=== PATIENT | male | born 1990 | race Caucasian/White ===

== ENCOUNTER 2018-08-22 01:40 | Outpatient (CLI) | payer OTHER, SELFPAY ==
[2018-08-22 08:38] LABS: HCT 45.6 % (40.0-50.0); HGB 16.2 g/dL (13.5-17.5); Mean Corp. HGB Concentration 35.5 g/dL (32.0-36.0); Mean Corpuscular Hemoglobin 31.8 pg (27.0-33.0); Mean Corpuscular Volume 89.6 fL (80-95); Mean Platelet Volume 9.8 fL (8.0-11.0); Platelet Count 204 x1000/uL (130-400); RBC 5.09 m/cumm (4.50-6.00); RBC Distribution Width 12.9 % (11.8-14.1); White Blood Cell Count 6.02 k/cumm (4.4-10.8)
[2018-08-22 09:20] LABS: ALT 30 U/L (12-78); AST 27 U/L (15-37); Albumin 4.4 g/dL (3.4-5.0); Alkaline Phosphatase 71 U/L (46-116); Bilirubin, Total 0.9 mg/dL (0.2-1.0); FREE T4 1.16 ng/dL (0.76-1.46); TSH 3.15 uIU/mL (0.358-3.74); Total Protein 7.9 g/dL (6.4-8.2)
[2018-08-23 10:18] LABS: PSA, Screening 0.7 ng/ml (0-2.5)
[2018-08-25 13:24] LABS: Testosterone, Total 136 ng/dL (240-950)
== END 2018-08-22 02:00 ==
PROVIDERS: Visit Provider Internal Medicine Endocrinology, Diabetes & Metabolism
DX: E23.0 Hypopituitarism (principal)
CPT/HCPCS: 36415; 80076; 84153; 84403; 85027; 84439; 84443

== ENCOUNTER 2018-12-14 07:01 | Outpatient (CLI) | payer OTHER, SELFPAY ==
[2018-12-14 08:15] LABS: ALT 27 U/L (12-78); AST 16 U/L (15-37); Albumin 4.6 g/dL (3.4-5.0); Alkaline Phosphatase 69 U/L (46-116); Bilirubin, Direct 0.29 mg/dL (0.00-0.20); Bilirubin, Total 1.5 mg/dL (0.2-1.0); Total Protein 7.7 g/dL (6.4-8.2)
[2018-12-17 11:14] LABS: Testosterone, Free 31.1 ng/dL (4.85-19.0); Testosterone, Total 865 ng/dL (240-950)
== END 2018-12-14 07:21 ==
PROVIDERS: PCP Nurse Practitioner Family; Visit Provider Internal Medicine Endocrinology, Diabetes & Metabolism
DX: E23.0 Hypopituitarism (principal)
CPT/HCPCS: 36415; 80076; 84402; 84403

== ENCOUNTER 2019-02-01 07:13 | Outpatient (CLI) | payer OTHER, SELFPAY ==
[2019-02-01 08:19] LABS: HCT 46.5 % (40.0-50.0); HGB 16.4 g/dL (13.5-17.5)
[2019-02-02 09:15] LABS: PSA, Screening 0.7 ng/ml (0-2.5)
[2019-02-03 16:46] LABS: Testosterone, Free 26.8 ng/dL (4.85-19.0); Testosterone, Total 724 ng/dL (240-950)
== END 2019-02-01 07:33 ==
PROVIDERS: PCP Nurse Practitioner Family; Visit Provider Internal Medicine Endocrinology, Diabetes & Metabolism
DX: E23.0 Hypopituitarism (principal)
CPT/HCPCS: 36415; 84153; 84402; 84403; 85014; 85018

== ENCOUNTER 2021-09-10 09:17 | Outpatient (REF) | payer OTHER, SELFPAY ==
[2021-09-10 14:34] LABS: Abs Immature Grans 0.02 10^3/uL (0.0-0.06); Absolute Basophil Count 0.04 10^3/uL (0.0-0.2); Absolute Eosinophil Count 0.18 10^3/uL (0.0-0.7); Absolute Lymphocyte Count 2.03 10^3/uL (1.2-3.4); Absolute Neutrophil Count 3.39 10^3/uL (1.2-6.7); Basophils % 0.7; HCT 47.8 % (40.0-50.0); HGB 16.3 g/dL (13.5-17.5); Immature Grans % 0.3; Lymphocytes % 33.5; MCH 30.6 pg (27.0-33.0); MCHC 34.1 % (32.0-36.0); MCV 89.7 fL (80-95); MPV 10.2 fL (8.0-11.0); Monocytes % 6.6; Neutrophils % 55.9; Nucleated RBC 0 %; Platelet Count 207 10^3/uL (130-400); RBC 5.33 10^6/uL (4.36-5.78); RDW 12.5 % (11.8-14.1); RDW-SD 40.9 fL; WBC 6.06 10^3/uL (4.4-10.8)
[2021-09-10 15:11] LABS: ALT 33 U/L (16-63); AST 20 U/L (15-37); Albumin 4.5 g/dL (3.4-5.0); Alkaline Phosphatase 76 U/L (46-116); Anion Gap 8.1 mmol/L (3-11); BUN 12 mg/dL (7-18); Bilirubin, Total 0.8 mg/dL (0.2-1.0); CO2 25.9 mmol/L (21.0-32.0); Calcium 9.3 mg/dL (8.5-10.1); Calculated LDL 100 mg/dL (<100); Chloride 105 mmol/L (98-107); Cholesterol 165 mg/dL (<200); Glucose 86 mg/dL (74-106); HDL Cholesterol 49 mg/dL (40-60); Potassium 4.1 mmol/L (3.5-5.1); Sodium 139 mmol/L (136-145); Total Protein 7.7 g/dL (6.4-8.2); Triglyceride 84 mg/dL (<150)
[2021-09-10 22:54] LABS: PSA, Screening 0.7 ng/mL (0.0-2.5)
[2021-09-18 14:40] LABS: Testosterone, Free 65.3 ng/dL (4.85-19.0); Testosterone, Total 1390 ng/dL (240-950)
== END 2021-09-10 09:18 | disposition home or self-care (01) ==
LOC: NCHCN 09:17
PROVIDERS: PCP Nurse Practitioner Family; Visit Provider Nurse Practitioner Family
DX: E23.0 Hypopituitarism (principal); F90.0 Attention-deficit hyperactivity disorder, predominantly inattentive type; Z12.5 Encounter for screening for malignant neoplasm of prostate
CPT/HCPCS: 80053; 80061; 84153; 84402; 84403; 85025

== ENCOUNTER 2022-01-07 15:15 | Outpatient (REF) | payer OTHER, SELFPAY ==
[2022-01-07 15:18] LABS: HCT 47.9 % (40.0-50.0); HGB 17.1 g/dL (13.5-17.5); MCH 32.7 pg (27.0-33.0); MCHC 35.7 % (32.0-36.0); MCV 92 fL (80-95); MPV 9.9 fL (8.0-11.0); Platelet Count 186 10^3/uL (130-400); RBC 5.23 10^6/uL (4.36-5.78); RDW 12.4 % (11.8-14.1); RDW-SD 41.9 fL; WBC 5.18 10^3/uL (4.4-10.8)
[2022-01-24 16:12] LABS: Testosterone, Free 43.4 ng/dL (4.85-19.0); Testosterone, Total 1010 ng/dL (240-950)
== END 2022-01-07 15:16 | disposition home or self-care (01) ==
LOC: NCHCN 15:15
PROVIDERS: PCP Nurse Practitioner Family; Visit Provider Nurse Practitioner Family
DX: Z51.81 Encounter for therapeutic drug level monitoring (principal)
CPT/HCPCS: 84402; 84403; 85027

== ENCOUNTER 2023-02-17 21:30 | Outpatient (REF) | payer OTHER, SELFPAY ==
[2023-02-17 22:08] LABS: Abs Immature Grans 0.06 10^3/uL (0.0-0.06); Absolute Basophil Count 0.04 10^3/uL (0.0-0.2); Absolute Eosinophil Count 0.14 10^3/uL (0.0-0.7); Absolute Lymphocyte Count 1.49 10^3/uL (1.2-3.4); Absolute Monocyte Count 0.53 10^3/uL (0.1-0.8); Absolute Neutrophil Count 4.01 10^3/uL (1.2-6.7); Basophils % 0.6; Eosinophils % 2.2; HCT 45.1 % (40.0-50.0); HGB 15.6 g/dL (13.5-17.5); Lymphocytes % 23.8; MCH 31.3 pg (27.0-33.0); MCHC 34.6 % (32.0-36.0); MCV 90 fL (80-95); MPV 9.8 fL (8.0-11.0); Monocytes % 8.5; Neutrophils % 63.9; Platelet Count 239 10^3/uL (130-400); RBC 4.99 10^6/uL (4.36-5.78); RDW 12.2 % (11.8-14.1); WBC 6.27 10^3/uL (4.4-10.8)
[2023-02-17 22:22] LABS: ALT 97 U/L (16-63); AST 39 U/L (15-37); Albumin 4.4 g/dL (3.4-5.0); Alkaline Phosphatase 103 U/L (46-116); Anion Gap 8.8 mmol/L (3-11); BUN 16 mg/dL (7-18); Bilirubin, Total 0.5 mg/dL (0.2-1.0); CO2 28.2 mmol/L (21.0-32.0); Calcium 9.5 mg/dL (8.5-10.1); Calculated LDL 119 mg/dL (<100); Chloride 101 mmol/L (98-107); Cholesterol 210 mg/dL (<200); Estimated GFR 101.28 (mL/min/1.73m2); Glucose 109 mg/dL (74-106); HDL Cholesterol 61 mg/dL (40-60); Potassium 3.9 mmol/L (3.5-5.1); Sodium 138 mmol/L (136-145); Total Protein 7.9 g/dL (6.4-8.2); Triglyceride 154 mg/dL (<150)
[2023-02-23 12:21] LABS: Testosterone, Free 6.37 ng/dL (4.85-19.0); Testosterone, Total 190 ng/dL (240-950)
== END 2023-02-17 21:31 | disposition home or self-care (01) ==
LOC: NCHCN 21:30
PROVIDERS: Visit Provider Nurse Practitioner Family
DX: F90.0 Attention-deficit hyperactivity disorder, predominantly inattentive type (principal); E23.0 Hypopituitarism; Z79.899 Other long term (current) drug therapy; Z51.81 Encounter for therapeutic drug level monitoring; R79.89 Other specified abnormal findings of blood chemistry; E29.8 Other testicular dysfunction
CPT/HCPCS: 80053; 80061; 84402; 84403; 85025

== ENCOUNTER 2024-05-03 14:52 | Outpatient (REF) | payer OTHER, SELFPAY ==
--- OUTSIDE RECORDS SUMMARY | 2024-05-03 14:56 | XMS_ITS | Encounter Summary ---
Author Organization [facility] Address [address] [place] [address] Care Team Providers Care Chief Of Surgery Name Role Phone Unknown, Provider Primary Care Provider Unava ilable Reason for Visit * Reason Onset Date Comments Medications Refill 03/12/2020 Encounter Details Date Type Department Care Team (Late st Contact Info) Description 03/12/2020 Refill [facility] Endocrinology [address] [place] [id number] Deborah Gonzales RN Medications Refill Social History Tobacco Use Types Packs/Day Years Used Date Smoking Tobacco: Never Assessed Interpersonal Safety Answer Date Record ed Physically Hurt Never 01/29/2020 Verbally Threaten Not on file 01/29/2020 Sex and Gender Information Value Date Recorded Sex Assigned at Male 09/09/2022 14:50 EDT Gender Identity Male 11/27/2020 15:43 EDT Sexual Orientation Straight 09/09/2022 14 :50 EDT documented as of this encounter Miscellaneous Notes * Telephone Encounter - Deborah Gonzales RN - 03/12/2020 1043 EDT Baylis called to [facility] x 1 yr. documented in this encounter Plan of Treatment Not on file documented as of this encounter Visit Diagnoses Not on filedocumented in this encounter Historical Medications * This list may reflect changes made after this encounter. Medication Sig Dispensed Refills Start Date End Date Needle, Disp, 18 G 18 gauge x 1 needle 1 Each by misc (non-drug; combo route) route. To withdraw testosterone every 2 weeks added in this encounter Care Teams Chief Of Surgery Relationship Specialty Start Date End Date Unknown, Provider, PCP - General 08/15/18 documented as of this encounter
--- OUTSIDE RECORDS SUMMARY | 2024-05-03 14:56 | XMS_ITS | Encounter Summary ---
Author Organization [facility] Address [address] [place] [address] Care Team Providers Care Tool Sharpener Name Role Phone Unknown, Provider Primary Care Provider Unava ilable Reason for Visit * Reason Onset Date Comments Medications Refill 03/11/2020 Encounter Details Date Type Department Care Team (Late st Contact Info) Description 03/11/2020 Refill [facility] Endocrinology [address] [place] [phone] Deborah Gonzales RN Medications Refill Social History [...] :50 EDT documented as of this encounter Plan of Treatment Not on file documented as of this encounter Visit Diagnoses Diagnosis Hypogonadism in male- Primary documented in this encounter Orders Equipment Count Last Ordered Date First Orde red Date GENERIC DME ORDER 1 03/11/2020 documented in this encounter Care Teams Tool Sharpener Relationship Specialty Start Date End Date Unknown, Provider, PCP - General 08/15/18 documented as of this encounter
--- OUTSIDE RECORDS SUMMARY | 2024-05-03 14:56 | XMS_ITS | Encounter Summary ---
Author Organization [facility] Address [address] [place] [address] Care Team Providers Care Gas Systems Worker Name Role Phone Unknown, Provider MD Primary Care Provider Unava ilable Reason for Visit * Reason Onset Date Comments Pre-visit Orders 02/15/2020 Encounter Details Date Type Department Care Team (Late st Contact Info) Description 02/15/2020 Telephone [facility] [place]ology [address] [place] [address] Kristi Mcwilliams MD [address] [facility] [address] [place] [address] Pre-visit Orders Social History Tobacco Use Types Packs/Day Years [...] Telephone Encounter - Deborah Gonzales RN - 02/15/2020 0910 EDT theyre ordered in ecw * Telephone Encounter - Ayaka Galo - 02/15/2020 0858 EDT He was suppose to come today but did not have labs done so changed his visit to a zoom visit in April . He wants to do the labs at the clinic near his home . I did not see orders. Please put in lab orders and I will print and sent to his home. 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
--- OUTSIDE RECORDS SUMMARY | 2024-05-03 14:56 | XMS_ITS | Referral Summary ---
Author Organization [facility] Address [address] [place] [address] Care Team Providers Care County Engineer Name Role Phone Unknown, Provider Primary Care Provider Unava ilable Allergies No known active allergies Medications Medication Sig Dispensed Refills Start Date End Date Status BD LUER-HATTIE SYRINGE 3 mL 22 x 1 1/2 syringe 1 Each. 05/15/2019 Active cholecalciferol, Vitamin D3, 125 mcg (5,000 unit) capsule 1 cap(s) orally once a day Active Benzocaine (HURRICAINE ONE) 20 % spray,non-aerosol 1 spray(s) applied topically with testosteorne every 2 weeks every 2 weeks Active Needle, Disp, 18 G 18 gauge x 1 needle 1 Each by misc (non-drug; combo route) route. To withdraw testosterone every 2 weeks Active testosterone cypionate (DEPO-TESTOSTERONE) 200 mg/mL injection Inject 1 mL into the muscle every 14 days. Daily Max: 200 mg 4 mL 2 08/27/2020 Active Active Problems Problem Noted Date Diagnosed Date Hypogonadotropic hypogonadism ([facility]) 05/21/20 20 Social History Tobacco Use Types Packs/Day Years Used Date Smoking Tobacco: Never Assessed Interpersonal Safety Answer Date Record ed Physically Hurt Never 01/29/2020 Verbally Threaten Not on file 01/29/2020 Sex and Gender Information Value Date Recorded Sex Assigned at Male 09/09/2022 14:50 EDT Gender Identity Male 11/27/2020 15:43 EDT Sexual Orientation Straight 09/09/2022 14 :50 EDT Plan of Treatment Not on file Care Teams County Engineer Relationship Specialty Start Date End Date Unknown, Provider, PCP - General 08/15/18
--- OUTSIDE RECORDS SUMMARY | 2024-05-03 14:56 | XMS_ITS | Encounter Summary ---
Author Organization [facility] Address [address] [place] [address] Care Team Providers Care Ripsawyer Name Role Phone Unknown, Provider Primary Care Provider Unava ilable Encounter Details Date Type Department Care Team (Late st Contact Info) Description 09/10/2021 Lab Requisition [facility] Pathology & Laboratory Medicine - [address] [address] Outr Resulting Lab, Provider Social History Tobacco Use Types Packs/Day Years [...] on file documented as of this encounter Procedures Procedure Name Priority Date/Time Associated Diagnosis Comments PSA TOTAL, DIAGNOSTIC Routine 09/10/2021 8:15 EDT documented in this encounter Results * PSA TOTAL, DIAGNOSTIC (09/10/2021 8:15 EDT) PSA 0.7 0.0 - 2.5 ng/mL 09/10/2021 22:49 EDT [facility] Blood VENOUS BLOOD / Unknown 09/10/2021 8:15 EDT 09/10/2021 21:26 EDT Narrative [facility] - 09/10/2021 22:49 EDT NOTE: Serum PSA concentration should not be interpreted as absolute evidence for the presence or absence of malignant disease. Assayed on Siemens [employer] XPT using chemiluminescent technology.??Values obtained by using different assay methods cannot be used interchangeably. Provider Outr Resulting Lab CHEMISTRY & BLOOD GAS ORDERABLES [facility] [address] [place] [address] documented in this encounter Visit Diagnoses Not on filedocumented in this encounter Care Teams Ripsawyer Relationship Specialty Start Date End Date Unknown, Provider, PCP - General 08/15/18 documented as of this encounter
--- OUTSIDE RECORDS SUMMARY | 2024-05-03 14:56 | XMS_ITS | Clinical Summary ---
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[facility]) 05/21/20 20 Social History Tobacco Use Types Packs/Day Years Used Date Smoking Tobacco: Never Assessed Interpersonal Safety Answer Date Record ed Physically Hurt Never 01/29/2020 Verbally Threaten Not on file 01/29/2020 Sex and Gender Information Value Date Recorded Sex Assigned at Male 09/09/2022 14:50 EDT Gender Identity Male 11/27/2020 15:43 EDT Sexual Orientation Straight 09/09/2022 14 :50 EDT Obstetrics History Plan of Treatment Health Maintenance Due Date Last Done Comments Hepatitis C Screen 1988 Hepatitis B Vaccine (1 of 3 - 19+ 3-dose series) 11/24 COVID-19 Vaccine (2022-24 season) 2023 Care Teams Stock Tracer Relationship Specialty Start Date End Date Unknown, Provider, PCP - General 08/15/18
--- OUTSIDE RECORDS SUMMARY | 2024-05-03 14:56 | XMS_ITS | Encounter Summary ---
Author Organization [facility] Address [address] [place] [address] Care Team Providers Care Dough Sheeter Name Role Phone Unknown, Provider MD Primary Care Provider Unava ilable Reason for Visit * Reason Comments Follow-up Hypogonadism Encounter Details Date Type Department Care Team (Latest Contact Info) Description 05/21/2020 8:00 EST Telemedicine [facility] Endocrinology [address] [place] [phone] Kristi Mcwilliams MD [address] [facility] [address] [place] [address] Hypogonadotropic hypogonadism (HCC-CMS) (Primary Dx) Social History Tobacco Use Types Packs/Day Years Used Date Smoking Tobacco: Never Assessed Interpersonal Safety Answer Date Record ed Physically Hurt Never 01/29/2020 Verbally Threaten Not on file 01/29/2020 Sex and Gender Information Value Date Recorded Sex Assigned at Male 09/09/2022 14:50 EDT Gender Identity Male 11/27/2020 15:43 EDT Sexual Orientation Straight 09/09/2022 14 :50 EDT documented as of this encounter Progress Notes * Deborah Gonzales RN - 05/21/2020 0800 EST Letter sent * Kristi De La Cruz MD - 05/21/2020 0800 EST [facility] Video Visit Today's visit was provided through telemedicine video conferencing: zoom The location of the patient: Workplace The location of the provider: Office Verbal consent: The concept of ???Telemedicine?? has been described to the patient.Patient has been informed of the anticipated benefits and possible risks. Patient understands the information provided regarding telemedicine, has had the opportunity to ask questions about this information, and all questions have been answered to patient???s satisfaction. Patient consents for the use of telemedicine in his/her medical care and authorizes the transmission of any relevant medical information to providers and their staff involved in patient???s medical or mental health care. 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 He reports he has been doing well, no changes in health. He did change his pharmacy to [facility]. Reports in the morning he takes time to urinate but denies any obstructive symptoms. No recent labs. Denies any breast tenderness. Voice is good, no sexually active how ever is masturbating w .o problems I have reviewed patient's tobacco history: has no history on file for tobacco. I have reviewed current problem list and current medications. ROS: Review of Systems Respiratory: Negative for shortness of breath. Cardiovascular: Negative for chest pain and palpitations. Gastrointestinal: Negative for heartburn and nausea. Genitourinary: Negative for frequency and urgency. Neurological: Negative for headaches. Objective: Examination: Home Vitals: There were no vitals taken for this visit. Pertinent exam findings: appears well, neck supple, no JVD, non-labored breathing, no wheeze, no rash on visible skin and mood and affect appropriate Data reviewed with patient: most recent labs reviewed Assessment & Plan: 1. 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 Clinically appears eugonadal. Advise to continue treatment. Needs to do labs, I said to Darrell that he needs at least once a year labs in order for me to renew prescriptions. Pharmacy updated in the computer. Will see him back in 6 months. 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
--- OUTSIDE RECORDS SUMMARY | 2024-05-03 14:56 | XMS_ITS | Encounter Summary ---
Author Organization [facility] Address [address] [place] [address] Care Team Providers Care Station Helper Name Role Phone Unknown, Provider Primary Care Provider Unava ilable Reason for Visit * Reason Onset Date Comments Medications Refill 08/27/2020 Testosterone Encounter Details Date Type Department Care Team (Late st Contact Info) Description 08/27/2020 Telephone [facility] Endocrinology [address] [place] [address] Deidre Burnette, SOLOMON [address] [place] [address] Medications Refill (Testosterone) Social History Tobacco Use Types Packs/Day Years Used Date Smoking Tobacco: Never Assessed Interpersonal Safety Answer Date Record ed Physically Hurt Never 01/29/2020 Verbally Threaten Not on file 01/29/2020 Sex and Gender Information Value Date Recorded Sex Assigned at Male 09/09/2022 14:50 EDT Gender Identity Male 11/27/2020 15:43 EDT Sexual Orientation Straight 09/09/2022 14 :50 EDT documented as of this encounter Ordered Prescriptions Prescription Sig Dispensed Refills Start Date End Da te testosterone cypionate (DEPO-TESTOSTERONE) 200 mg/mL injection Inject 1 mL into the muscle every 14 days. Daily Max: 200 mg 4 mL 2 08/27/2020 documented in this encounter Miscellaneous Notes * Telephone Encounter - Deidre Burnette, SOLOMON - 08/27/2020 0881 EST Prescription called to pharmacy per order Dr Mcwilliams documented in this encounter Plan of Treatment Not on file documented as of this encounter Visit Diagnoses Not on filedocumented in this encounter Discontinued Medications Medication Sig Discontinue Reason Start Date End Da te testosterone cypionate (DEPO-TESTOSTERONE) 200 mg/mL injection Inject 1 mL into the muscle every 14 days. Daily Max: 200 mg Reorder 01/17/2020 08/27/2020 documented as of this encounter Care Teams Station Helper Relationship Specialty Start Date End Date Unknown, Provider, PCP - General 08/15/18 documented as of this encounter
--- OUTSIDE RECORDS SUMMARY | 2024-05-03 14:56 | XMS_ITS | Encounter Summary ---
Author Organization [facility] Address [address] [place] [address] Care Team Providers Care Manager Plan Name Role Phone Unknown, Provider MD Primary Care Provider Unava ilable Reason for Visit * Reason Onset Date Comments Medications Refill 07/18/2019 Encounter Details Date Type Department Care Team (Late st Contact Info) Description 07/18/2019 Refill [facility] Endocrinology [address] [place] [phone] Deborah Gonzales RN Medications Refill Social History Tobacco Use Types Packs/Day Years Used Date Smoking Tobacco: Never Assessed Sex and Gender Information Value Date Recorded Sex Assigned at Male 09/09/2022 14:50 EDT Gender Identity Male 11/27/2020 15:43 EDT Sexual Orientation Straight 09/09/2022 14 :50 EDT documented as of this encounter Miscellaneous Notes * Telephone Encounter - Deborah Gonzales RN - 07/18/2019 0945 EST Syringes refilled x 1 yr. documented in this encounter Plan of Treatment Not on file documented as of this encounter Visit Diagnoses Diagnosis Hypogonadotropic hypogonadism (HCC-CMS)- Primary Other anterior pituitary disorders documented in this encounter Care Teams Manager Plan Relationship Specialty Start Date End Date Unknown, Provider, PCP - General 08/15/18 documented as of this encounter
--- OUTSIDE RECORDS SUMMARY | 2024-05-03 14:56 | XMS_ITS | Encounter Summary ---
Author Organization [facility] Address [address] [place] [address] Care Team Providers Care Hospital Cleaning Specialist Name Role Phone Unknown, Provider Primary Care Provider Unava ilable Reason for Visit * Reason Comments Hypogonadism * Referral (Routine/Next Available) - Receiving Office to Obtain Authorization Specialty Diagnoses / Procedures Referred By Jasmine miller Referred To Contact Endocrinology Diagnoses Kallman syndrome ([facility]) Ana Maria De Leon NP [address] [place] [address] [address] Referral ID Status Reason Start Date Expiration Date Visits Requested Visits Authorized [id number] Receiving Office to Obtain Authorization 1 1 Encounter Details Date Type Department Care Team (Latest Contact Info) Description 09/09/2022 16:00 EDT Telemedicine [facility] Endocrinology - [address] [address] Raul Atwood MD Hypogonadotropic hypogonadism in male ([facility]) (Primary Dx) Social History Tobacco Use Types [...] as of this encounter Progress Notes * Raul Atwood MD - 09/09/2022 1600 EDT Endocrinology New Patient Visit Date of Service: 09/09/2022 Chief Complaint Patient presents with ??? Hypogonadism HPI: Darrell Larson is a 31 y.o. 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 Patient states that they were diagnosed with hypogonadotrophic hypogonadism more than 10 years ago thought to be due to Kallmann syndrome. Patient was initially started out on topical testosterone therapy but due to financial constraints patient was switched over to injectable testosterone. Patient iscurrently on testosterone cypionate 150 mg IM every 14 days (0.75 mL of testosterone cypionate 200 mg/mL concentration). Review of testosterone measures obtained by referring provider shows elevated testosterone measures. However the timing before or after dosing is uncertain. Patient admits that he is sometimes forgetful and cannot remember timing surrounding his injections. Additionally patient reports that he has been doing the injectable testosterone for so long now that is somewhat painful and wanted to know if there is any other alternatives. Patient denies any ill effects associated with his current testosterone therapy in terms of aggressive behavior, excessive acne or hypersexual is him. Patient is otherwise without complaints today. Review of Systems A 10 point review of systems was obtained, pertinent positives and negatives as listed above, all others negative. Active Problem List Patient Active Problem List Diagnosis ??? Hypogonadotropic hypogonadism (HCC) PMH PSH History reviewed. No pertinent past medical history. History reviewed. No pertinent surgical history. Social History Family history Social History Socioeconomic History ??? Marital status: Single Spouse name: Not on file ??? Number of children: Not on file ??? Years of education: Not on file ??? Highest education level: Not on file Occupational History ??? Not on file Tobacco Use ??? Smoking status: Not on file ??? Smokeless tobacco: Not on file Substance and Sexual Activity ??? Alcohol use: Not on file ??? Drug use: Not on file ??? Sexual activity: Not on file Other Topics Concern ??? Not on file Social History Narrative ??? Not on file Social Determinants of Health Financial Resource Strain: Not on file Food Insecurity: Not on file Transportation Needs: Not on file Physical Activity: Not on file Stress: Not on file Social Connections: Not on file Housing Stability: Not on file History reviewed. No pertinent family history. Current Outpatient Medications Medication ??? BD LUER-HATTIE SYRINGE 3 mL 22 x 1 1/2 syringe ??? Benzocaine (HURRICAINE ONE) 20 % spray,non-aerosol ??? cholecalciferol, Vitamin D3, 125 mcg (5,000 unit) capsule ??? Needle, Disp, 18 G 18 gauge x 1 needle ??? testosterone cypionate (DEPO-TESTOSTERONE) 200 mg/mL injection No current facility-administered medications for this visit. Allergies No Known Allergies Current Medications Current Outpatient Medications on File Prior to Visit Medication Sig Dispense Refill ??? BD LUER-HATTIE SYRINGE 3 mL 22 x 1 1/2 syringe 1 Each. ??? Benzocaine (HURRICAINE ONE) 20 % spray,non-aerosol 1 spray(s) applied topically with testosteorne every 2 weeks every 2 weeks ??? cholecalciferol, Vitamin D3, 125 mcg (5,000 unit) capsule 1 cap(s) orally once a day ??? Needle, Disp, 18 G 18 gauge x 1 needle 1 Each by misc (non-drug; combo route) route. To withdraw testosterone every 2 weeks ??? testosterone cypionate (DEPO-TESTOSTERONE) 200 mg/mL injection Inject 1 mL into the muscle every 14 days. Daily Max: 200 mg 4 mL 2 No current facility-administered medications on file prior to visit. Objective: There were no vitals taken for this visit. Wt Readings from Last 3 Encounters: No data found for Wt Physical Exam: Gen: Well-developed well-nourished in NAD Remainder physical exam deferred today as this was a telehealth visit. Previous Labs: Have reviewed testosterone measures as documented in patient's referral attachment. Assessment/Plan: 1. 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 Patient reports that he has good insurance now and would be willing to transition back to topical testosterone replacement. I agree that this would be the best way to administer the testosterone as opposed to injectable formulations. We discussed topical testosterone gel/creams and their superiority to injectable testosterone. The patient is willing to try. Given the patient's distance from our clinic will defer to the patient's primary care for institution of the following recommendations: 1. Stop IM testosterone cypionate 2. Prescribe AndroGel 1.62% and administer 2 pump actuations to the right or left deltoid daily. 3. Following 2 to 3 months of the above reassess testosterone measures 4 to 6 hours after application of topical AndroGel. Ideally should target testosterone levels between 400 to 600 ng/dL. 4. Continue to follow CBC, transaminases, and annual fasting lipid levels. Will defer to the patient's primary care for further longitudinal follow-up but would be happy to assist in making further recommendations if needed. I spent a total of 30 minutes on the date of this encounter meeting with the patient and reviewing documentation/coordinating care as described in the above note. No procedures were performed at the time of the visit. The concept of ???Telemedicine?? has been described to the patient.? Patient has been informed of the anticipated benefits and possible risks.? Patient understands the information provided regardingtelemedicine, has had the opportunity to ask questions about this information, and all questions have been answered to patient???s satisfaction. Patient consents for the use of telemedicine in his/her medical care and authorizes the transmission of any relevant medical information to providers and their staff involved in patient???s medical or mental health care. Patient understands that they maybe responsible for copays, deductible or coinsurance for this service. TELEMEDICINE VIDEO VISIT Today's visit was provided through telemedicine video conferencing: I have reviewed the appropriateness of using video technology with the patient with regards to today's visit. The location of the patient : Workplace Patient location state: Visit Location State: [place] The location of the provider: Office Provider location state: [place] The following people and their roles were present for today's visit: Appointment Provider: Raul Atwood MD documented in this encounter Plan of Treatment Not on file documented as of this encounter Visit Diagnoses Diagnosis Hypogonadotropic hypogonadism in male (HCC-CMS)- Primary documented in this encounter Care Teams Hospital Cleaning Specialist Relationship Specialty Start Date End Date Unknown, Provider, PCP - General 08/15/18 documented as of this encounter
--- OUTSIDE RECORDS SUMMARY | 2024-05-03 14:56 | XMS_ITS | Encounter Summary ---
Author Organization [facility] Address [address] [place] [address] Care Team Providers Care Radio Interference Expert Name Role Phone Unknown, Provider Primary Care Provider Unava ilable Reason for Visit * Reason Onset Date Comments Medications Refill 01/17/2020 Encounter Details Date Type Department Care Team (Late st Contact Info) Description 01/17/2020 Refill [facility] Endocrinology [address] [place] [address] Deidre Burnette, [address] [place] [address] Medications Refill Social History Tobacco Use Types [...] every 14 days. Daily Max: 200 mg 6 mL 1 01/17/2020 08/27/2020 documented in this encounter Miscellaneous Notes * Telephone Encounter - Ayaka Galo - 01/24/2020 0840 EDT Left message for Darrell to call and scheduled a follow up appointment. * Telephone Encounter - Deidre Burnette RN - 01/17/2020 1059 EDT Prescription called to pharmacy per order Dr Mcwilliams * Telephone Encounter - Deidre Burnette RN - 01/17/2020 1044 EDT Pt will need visit. Has not been seen since 02/14/2019 documented in this encounter Plan of Treatment Not on file documented as of this encounter Visit Diagnoses Diagnosis Hypogonadism male- Primary Other testicular hypofunction documented in this encounter Orders Equipment Count Last Ordered Date First Orde red Date GENERIC DME ORDER 1 01/17/2020 documented in this encounter Care Teams Radio Interference Expert Relationship Specialty Start Date End Date Unknown, Provider, PCP - General 08/15/18 documented as of this encounter
--- OUTSIDE RECORDS SUMMARY | 2024-05-03 14:56 | XMS_ITS | Encounter Summary ---
Author Organization [facility] Address [address] [place] [address] Care Team Providers Care Retail Service Specialist Name Role Phone Unknown, Provider MD Primary Care Provider Unava ilable Reason for Visit * Reason Onset Date Comments Medications Refill 07/13/2019 Encounter Details Date Type Department Care Team (Late st Contact Info) Description 07/13/2019 Refill [facility] Endocrinology [address] [place] [address] Kristi Mcwilliams MD [address] [facility] [address] [place] [address] Medications Refill Social History Tobacco Use Types Packs/Day Years Used Date Smoking Tobacco: Never Assessed Sex and Gender Information Value Date Recorded Sex Assigned at Male 09/09/2022 14:50 EDT Gender Identity Male 11/27/2020 15:43 EDT Sexual Orientation Straight 09/09/2022 14 :50 EDT documented as of this encounter Ordered Prescriptions Prescription Sig Dispensed Refills Start Date End Da te BD LUER-HATTIE SYRINGE 3 mL syringe Inject 1 Each into the muscle every 14 days for 90 days. 6 Syringe 1 07/13/2019 10/11/2019 testosterone cypionate (DEPO-TESTOSTERONE) 200 mg/mL injection Inject 1 mL into the muscle every 14 days for 90 days. Daily Max: 200 mg 6 mL 1 07/13/2019 10/11/2019 documented in this encounter Miscellaneous Notes * Telephone Encounter - Sherice Marrero - 07/13/2019 1341 EST Pharmacy requesting refill of testosterone and syringes. Patient not due for appt until 01/2020 documented in this encounter Plan of Treatment Not on file documented as of this encounter Visit Diagnoses Not on filedocumented in this encounter Discontinued Medications Medication Sig Discontinue Reason Start Date End Da te testosterone cypionate (DEPO-TESTOSTERONE) 200 mg/mL injection INJECT 1 MILLILITER EVERY 2 WEEKS Reorder 05/15/2019 07/13/2019 documented as of this encounter Historical Medications * This list may reflect changes made after this encounter. Medication Sig Dispensed Refills Start Date End Date Benzocaine (HURRICAINE ONE) 20 % spray,non-aerosol 1 spray(s) applied topically with testosteorne every 2 weeks every 2 weeks cholecalciferol, Vitamin D3, 125 mcg (5,000 unit) capsule 1 cap(s) orally once a day BD LUER-HATTIE SYRINGE 3 mL 22 x 1 1/2 syringe 1 Each. 05/15/2019 testosterone cypionate (DEPO-TESTOSTERONE) 200 mg/mL injection INJECT 1 MILLILITER EVERY 2 WEEKS 05/15/2019 07/13/2019 added in this encounter Care Teams Retail Service Specialist Relationship Specialty Start Date End Date Unknown, Provider, PCP - General 08/15/18 documented as of this encounter
[2024-05-03 20:03] LABS: HCT 43.7 % (40.0-50.0); HGB 15.6 g/dL (13.5-17.5); MCH 31.3 pg (27.0-33.0); MCHC 35.7 % (32.0-36.0); MCV 88 fL (80-95); MPV 10.2 fL (8.0-11.0); Platelet Count 243 10^3/uL (130-400); RBC 4.98 10^6/uL (4.36-5.78); RDW 12.2 % (11.8-14.1); RDW-SD 38.9 fL; WBC 6.84 10^3/uL (4.4-10.8)
[2024-05-03 20:39] LABS: ALT 67 U/L (16-63); AST 32 U/L (15-37); Albumin 4.2 g/dL (3.4-5.0); Alkaline Phosphatase 112 U/L (46-116); Anion Gap 10.7 mmol/L (3-11); BUN 15 mg/dL (7-18); Bilirubin, Total 0.43 mg/dL (0.2-1.0); CO2 26.3 mmol/L (21.0-32.0); Calcium 9.5 mg/dL (8.5-10.1); Chloride 107 mmol/L (98-107); Estimated GFR 100.66 (mL/min/1.73m2); Glucose 104 mg/dL (74-106); Potassium 4.1 mmol/L (3.5-5.1); Sodium 144 mmol/L (136-145); TSH (W/Ref FT4) 2.66 uIU/mL (0.36-3.74)
[2024-05-03 20:40] LABS: Hemoglobin A1C 5.1 % (<5.7)
[2024-05-09 17:31] LABS: Testosterone, Free 12.4 ng/dL (4.65-18.1); Testosterone, Total 299 ng/dL (240-950)
== END 2024-05-03 14:53 | disposition home or self-care (01) ==
LOC: NCHCN 14:52
PROVIDERS: Visit Provider Nurse Practitioner Family
DX: Z00.00 Encounter for general adult medical examination without abnormal findings (principal)
CPT/HCPCS: 80053; 84402; 84403; 85027; 83036; 84443

== ENCOUNTER 2025-02-07 20:15 | Outpatient (REF) | payer OTHER, SELFPAY ==
[2025-02-07 20:55] LABS: HCT 45.6 % (40.0-50.0); HGB 15.7 g/dL (13.5-17.5); MCH 31.0 pg (27.0-33.0); MCHC 34.4 % (32.0-36.0); MCV 90 fL (80-95); MPV 9.6 fL (8.0-11.0); Platelet Count 233 10^3/uL (130-400); RBC 5.07 10^6/uL (4.36-5.78); RDW 12.3 % (11.8-14.1); RDW-SD 40.0 fL; WBC 8.01 10^3/uL (4.4-10.8)
[2025-02-07 21:08] LABS: ALT 55 U/L (16-63); AST 25 U/L (15-37); Albumin 4.2 g/dL (3.4-5.0); Alkaline Phosphatase 85 U/L (46-116); Anion Gap 9.6 mmol/L (3-11); BUN 16 mg/dL (7-18); Bilirubin, Total 0.5 mg/dL (0.2-1.0); CO2 25.4 mmol/L (21.0-32.0); Calcium 8.9 mg/dL (8.5-10.1); Calculated LDL 129 mg/dL (<100); Chloride 103 mmol/L (98-107); Cholesterol 203 mg/dL (<200); Estimated GFR 100.03 (mL/min/1.73m2); Glucose 100 mg/dL (74-106); HDL Cholesterol 38 mg/dL (>or=40); Potassium 4.1 mmol/L (3.5-5.1); Sodium 138 mmol/L (136-145); Total Protein 7.5 g/dL (6.4-8.2); Triglyceride 181 mg/dL (<150)
[2025-02-07 23:23] LABS: Hemoglobin A1C 4.9 % (<5.7)
== END 2025-02-07 20:16 | disposition home or self-care (01) ==
LOC: NCHCN 20:15
PROVIDERS: Visit Provider Nurse Practitioner Family
DX: R29.1 Meningismus (principal); E78.5 Hyperlipidemia, unspecified
CPT/HCPCS: 80053; 80061; 84402; 84403; 85027; 83036